=== PATIENT | female | born 1980 | race African-American/Black ===

== ENCOUNTER 2017-06-12 18:33 | Emergency (ER) | payer OTHER ==
[~2017-06-12] VITALS: Ht 160 cm; Wt 104.3 kg
[~2017-06-12 18:33] MED LIST: ACETAMINOPHEN-1 EAC1 PO; DARVOCET-N 1001 EACH PO; FLAGYL500 MG PO; FLEXERIL PO; INDOMETHACIN 2525 MG PO; MACROBID 100 M100 M1 PO; NOHOMEMEDICATIONS; NORCO 5-325 TA1 EACH PO; PENICILLIN V P500 MG PO; PERCOCET 5-3251 EACH PO; ZOFRAN ODT4 MG PO; ZPAK PO
[2017-06-12] MEDS ORDERED: DOLOPHINE HCL5 MG PO (18:41)
[2017-06-12] MEDS ORDERED: OXYCONTIN10 M1 PO (18:42)
[2017-06-12 20:34] VITALS: BP 118/55
== END 2017-06-12 20:35 | disposition home or self-care (01) ==
LOC: ER 18:33
DX: M25.572 Pain in left ankle and joints of left foot (principal); R51 Headache; F17.210 Nicotine dependence, cigarettes, uncomplicated; Z90.49 Acquired absence of other specified parts of digestive tract; Z88.5 Allergy status to narcotic agent; Z88.6 Allergy status to analgesic agent